=== PATIENT | male | born 1960 | race Caucasian/White ===

== ENCOUNTER 2019-03-07 00:05 | Inpatient (IN) | payer MEDICARE, MEDICAID ==
[~2019-03-07] VITALS: Ht 162.6 cm; Wt 102.1 kg
[2019-03-07 00:19] VITALS: BP 132/76
[2019-03-07] MEDS ORDERED: LORazepam 2 MG TABLET PO PRN (00:30)
[2019-03-07] MEDS ORDERED: ZOLPIDEM TARTRATE 10 MG TABLET PO PRN (00:30)
[2019-03-07] MEDS ORDERED: HALOPERIDOL 5 MG TABLET PO PRN (00:30)
[2019-03-07] MEDS ORDERED: LORA0.5T2 PO (01:24)
[2019-03-07 02:22] VITALS: BP 130/81
[2019-03-07] MEDS ORDERED: PNEUMOCOCCAL VACCINE POLYVALENT 0.5 ML VIAL [PPSV23] IM ONE (03:00)
[2019-03-07] MEDS ORDERED: IBUPROFEN 600 MG TABLET PO PRN (07:30)
[2019-03-07] MEDS ORDERED: MAG HYDROX/AL HYDROX/SIMETH ES 30 ML SUSPENSION UDCUP PO PRN (07:30)
[2019-03-07] MEDS ORDERED: PETROLATUM,WHITE 28 GM JELLY TP PRN (07:30)
[2019-03-07] MEDS ORDERED: CloNIDine HCL 0.1 MG TABLET PO PRN (07:30)
[2019-03-07] MEDS ORDERED: ACETAMINOPHEN 325 MG TABLET PO PRN (07:30)
[2019-03-07] MEDS ORDERED: LOPERAMIDE HCL 2 MG CAPSULE PO PRN (07:30)
[2019-03-07] MEDS ORDERED: ALBUTEROL SULFATE HFA 90 MCG/PUFF 8 GM INHALER IH PRN (07:30)
[2019-03-07] MEDS ORDERED: BENZOCAINE/MENTHOL LOZENGE MM PRN (07:30)
[2019-03-07] MEDS ORDERED: ONDANSETRON HCL 4 MG TABLET PO PRN (07:30)
[2019-03-07] MEDS ORDERED: MAGNESIUM HYDROXIDE SUSPENSION 30 ML UDCUP PO PRN (07:30)
[2019-03-07] MEDS ORDERED: BACITRACIN 28.4 GM OINTMENT TP PRN (07:30)
[2019-03-07 07:56] LABS: BASOPHILS % (AUTO) 0.9 % (0.0-2.0); EOSINOPHILS % (AUTO) 1.6 % (1.0-6.0); HEMATOCRIT 42.5 % (41-53); HEMOGLOBIN 14.5 g/dL (13.5-17.5); LYMPHOCYTES # (AUTO) 0.5 K/uL (1.0-4.8); LYMPHOCYTES % (AUTO) 10.8 % (22.0-44.0); MEAN CORPUSCULAR HGB CONC 34.1 G/dL (31.0-37.0); MEAN CORPUSCULAR VOLUME 94 fL (80-100); MONOCYTES # (AUTO) 0.4 K/uL (0.1-1.0); MONOCYTES % (AUTO) 8.8 % (2.0-9.0); NEUTROPHILS # (AUTO) 3.9 K/uL (1.8-7.7); NEUTROPHILS % (AUTO) 77.9 % (40.0-70.0); PLATELET COUNT (AUTO) 156 K/uL (150-450); RED BLOOD CELL COUNT(AUTO) 4.52 MIL/uL (4.50-5.90); RED CELL DISTRIBUTION WIDTH 12.5 % (11.5-14.5)
[2019-03-07 08:10] LABS: CHOL/HDL RATIO 3.8 (4.2-7.3)
[2019-03-07 08:22] VITALS: BP 118/75
[2019-03-07 08:31] LABS: FREE T4 (FREE THYROXINE) 0.99 ng/dL (0.76-1.46); THYROID STIMULATING HORMONE 1.03 uIU/mL (0.36-3.74)
[2019-03-07] MEDS: LISINOPRIL 5 MG TABLET PO SCH (08:56)
[2019-03-07] MEDS: OMEPRAZOLE 20 MG CAPSULE PO SCH (08:56)
[2019-03-07] MEDS: DOCUSATE SODIUM 100 MG CAPSULE PO SCH (08:56)
[2019-03-07 16:31] VITALS: BP 119/66
[2019-03-08 05:00] VITALS: BP 123/89
[2019-03-08] MEDS: DOCUSATE SODIUM 100 MG CAPSULE PO SCH (08:05)
[2019-03-08] MEDS: LISINOPRIL 5 MG TABLET PO SCH (08:06)
[2019-03-08] MEDS: OMEPRAZOLE 20 MG CAPSULE PO SCH (08:06)
[2019-03-08 08:40] LABS: AMPHET/METH SCREEN,URINE NEGATIVE (NEGATIVE); BARBITURATE SCREEN, URINE NEGATIVE (NEGATIVE); BENZODIAZEPINES SCREEN,URINE NEGATIVE (NEGATIVE); CANNABINOID SCREEN,URINE NEGATIVE (NEGATIVE); COCAINE SCREEN,URINE NEGATIVE (NEGATIVE); METHADONE SCREEN, URINE NEGATIVE (NEGATIVE); OPIATE SCREEN,URINE NEGATIVE (NEGATIVE)
[2019-03-08 09:03] LABS: PHENCYCLIDINE SCREEN,URINE NEGATIVE (NEGATIVE)
[2019-03-08 09:11] LABS: APPEARANCE,URINE CLEAR (CLEAR); BILIRUBIN,URINE NEGATIVE (NEGATIVE); GLUCOSE, URINE (UA) NEGATIVE (NEGATIVE); KETONES,URINE NEGATIVE (NEGATIVE); LEUKOCYTE ESTERASE ,URINE NEGATIVE (NEGATIVE); NITRATE,URINE NEGATIVE (NEGATIVE); OCCULT BLOOD,URINE MODERATE (NEGATIVE); PH,URINE 6.5 (5.0-8.0); PROTEIN,URINE NEGATIVE (NEGATIVE); UROBILINOGEN,URINE 0.2 mg/dL (<=1.0)
[2019-03-08 09:12] VITALS: BP 136/79
[2019-03-08 09:17] LABS: BACTERIA,URINE None Seen /HPF (None Seen); WBC,URINE None Seen /HPF (0-5)
[2019-03-08 16:58] VITALS: BP 130/86
[2019-03-09 00:03] VITALS: BP 146/86
[2019-03-09 08:15] VITALS: BP 129/77
[2019-03-09] MEDS: LISINOPRIL 5 MG TABLET PO SCH (08:55)
[2019-03-09] MEDS: OMEPRAZOLE 20 MG CAPSULE PO SCH (08:55)
[2019-03-09] MEDS: DOCUSATE SODIUM 100 MG CAPSULE PO SCH (08:55)
[2019-03-09] MEDS ORDERED: LISI-660 PO (10:52)
== END 2019-03-09 13:50 | disposition home or self-care (01) | DRG 885 ==
LOC: B2X 00:27
PROVIDERS: ADMIT Psychiatry & Neurology Psychiatry; ATTEND Psychiatry & Neurology Psychiatry
DX: F25.9 Schizoaffective disorder, unspecified (principal); R45.851 Suicidal ideations; I10 Essential (primary) hypertension; E66.9 Obesity, unspecified; K21.9 Gastro-esophageal reflux disease without esophagitis; M19.90 Unspecified osteoarthritis, unspecified site; F41.9 Anxiety disorder, unspecified; G47.00 Insomnia, unspecified; M17.10 Unilateral primary osteoarthritis, unspecified knee; Z28.21 Immunization not carried out because of patient refusal
CPT/HCPCS: 80307; 84439; 84443; 90732